=== PATIENT | female | born 1985 | race Caucasian/White ===

== ENCOUNTER 2017-11-25 18:27 | Emergency (ER) | payer OTHER ==
[2017-11-25 18:47] VITALS: BMI 23.8
[2017-11-25] MEDS ORDERED: SODIUM CHLORIDE 0.9% 500 ML INFUS.BAG IV ONE (19:57)
[2017-11-25] MEDS ORDERED: ACETAMINOPHEN 1000 MG/100 ML VIAL (NON FORMULARY) IVPB ONE (19:57)
--- NOTE | 2017-11-25 20:18 | PDOC ---
History of Present Illness - General Chief Complaint: Headache Stated Complaint: Headache Time Seen by Provider: 11/25/17 19:37 - History of Present Illness Initial Comments: 32 y/o about 2 month gravid F with hx of miscarriage x2 in the past presents for evaluation of GUZMÁN x1 day unreleieved with PO Tylenol at home at 1 pm. Associated with nausea and 1 episode of vomiting and photophobia. Hx of prior headaches in the past. 11/25/17 20:16 Past History - Past Medical History Allergies/Adverse Reactions: Allergies Allergy/AdvReac Type Severity Reaction Status Date / Time No Known Allergies Allergy Verified 11/25/17 18:43 Home Medications: Ambulatory Orders NK [No Known Home Medication] 11/25/17 - Suicide/Smoking/Psychosocial Hx Smoking History: Never smoked Have you smoked in the past 12 months: No Hx Alcohol Use: No Drug/Substance Use Hx: No Review of Systems - Review of Systems ABD/GI: Yes: Nausea, Vomiting Neurological: Yes: See HPI, Headache All Other Systems: Reviewed and Negative *Physical Exam - Vital Signs Last Vital Signs Temp Pulse Resp BP Pulse Ox 98.9 F 84 16 110/67 99 11/25/17 18:43 11/25/17 18:43 11/25/17 18:43 11/25/17 18:43 11/25/17 18:43 - Physical Exam Comments: HEAD: NC/AT EYES: Conjuntiva clear, PERRL NOSE: No d/c THROAT: Moist mucous membrances, oral pharanx clear, uvula midline NECK: Supple without adenopathy CARDIAC: S1 S2 LUNGS: CTA Full and Equal breath sounds ABDOMEN: Soft NT ND MS: Full ROM in all joints without edema NEUROLOGIC: No gross sensory or motor deficits, NVID SKIN: Normal color and temperature no lesions or rashes 11/25/17 20:34 ED Treatment Course - LABORATORY CBC & Chemistry Diagram: 11/25/17 20:00 11/25/17 20:00 Medical Decision Making - Medical Decision Making 11/25/17 23:31 Tylenol and normal saline a liter bolus Benadryl and Reglan were given headache was relieved. A weeks does not require REFERENCE TEST CLERK clearance she may be safely discharged with follow-up with REFERENCE TEST CLERK *DC/Admit/Observation/Transfer Diagnosis at time of Disposition: Headache - Discharge Dispostion Disposition: HOME Condition at time of disposition: Improved Decision to Admit order: No - Referrals Referrals: Darlyn St A [Primary Care Provider] - Manan Brandt MD [Staff Physician] - - Patient Instructions Printed Discharge Instructions: DI for Headache Additional Instructions: Regrese a la demi de emergencias si los sntomas regresan. Xiang un seguimiento con un obstetra / gineclogo en 1 o 2 elizabeth para obtener ms informacin sobre la evaluacin y las opciones de tratamiento. Mariaelena arreaga dado el nombre de un neurlogo para obtener ms informacin sobre la evaluacin y la opcin de tratamiento de davidson dolor de alison. Solo puede juan Tylenol para el dolor segn las indicaciones. Print Language: TONGAN - Post Discharge Activity
[2017-11-25 20:25] LABS: BASO % 0.5 % (0-2.0); EOS % 1.1 % (0-4.5); HEMATOCRIT 35.9 % (32.4-45.2); HEMOGLOBIN 12.2 GM/dL (10.7-15.3); LYMPH % 24.7 % (8-40); MCH 30.1 pg (25.7-33.7); MEAN CELL VOLUME 88.4 fl (80-96); MEAN PLT VOLUME 9.5 fl (7.5-11.1); MONO % 5.6 % (3.8-10.2); NEUT % 68.1 % (42.8-82.8); PLATELET COUNT 201 K/MM3 (134-434); RBC 4.06 M/mm3 (3.60-5.2); RDW 13.6 % (11.6-15.6); WHITE BLOOD COUNT 8.1 K/mm3 (4.0-10.0)
[2017-11-25 20:34] LABS: ALBUMIN 3.4 g/dl (3.4-5.0); ALK PHOS 29 U/L (45-117); ANION GAP 9 MMOL/L (8-16); BILIRUBIN,TOTAL 0.2 mg/dL (0.2-1); BLOOD UREA NITROGEN 6 mg/dL (7-18); CALCIUM 9.2 mg/dL (8.5-10.1); CHLORIDE 105 mmol/L (98-107); CO2 24 mmol/L (21-32); CREATININE 0.4 mg/dL (0.55-1.3); GLUCOSE,RANDOM 96 mg/dL (74-106); SGOT/AST 11 U/L (15-37); SGPT/ALT 16 U/L (13-61); SODIUM 137 mmol/L (136-145); TOT PROT 6.6 g/dl (6.4-8.2)
[2017-11-25] MEDS ORDERED: ACETAMINOPHEN INJECTION 100 ML IVPB ONE (21:09)
[2017-11-25] MEDS ORDERED: METOCLOPRAMIDE HCL INJECTION 10 MG/2 ML VIAL IVPUSH ONE (21:47)
[2017-11-25] MEDS ORDERED: METOCLOPRAMIDE HCL INJECTION 10 MG/2 ML VIAL ONE (22:54)
[2017-11-26 00:20] VITALS: BP 115/64; PULSE 78; TEMP 98.1
== END 2017-11-26 00:20 | disposition home or self-care (01) ==
LOC: JERFT 18:27 → JER 18:27
PROC: 3E033NZ Introduction of Analgesics, Hypnotics, Sedatives into Peripheral Vein, Percutaneous Approach (ICD-10-PCS; principal; 2017-11-25)
PROC: 3E033GC Introduction of Other Therapeutic Substance into Peripheral Vein, Percutaneous Approach (ICD-10-PCS; 2017-11-25)
PROC: 3E033GC Introduction of Other Therapeutic Substance into Peripheral Vein, Percutaneous Approach (ICD-10-PCS; 2017-11-25)
DX: O26.891 Other specified pregnancy related conditions, first trimester (principal); R51 Headache; Z3A.08 8 weeks gestation of pregnancy
CPT/HCPCS: 36415; 80053; 85025; 96374; 96375; 99281-25; J0131

== ENCOUNTER 2018-06-09 06:33 | Inpatient (IN) | payer OTHER ==
[2018-06-09 07:42] VITALS: BMI 29.6
[2018-06-09] MEDS ORDERED: ONDANSETRON 4 MG/2 ML VIAL IVPUSH PRN (07:47)
[2018-06-09] MEDS ORDERED: morphine SULFATE/Preservative Free 0.5 MG/ML (1cc Syringe) EP ONE (07:47)
[2018-06-09] MEDS ORDERED: OXYTOCIN 20 UNITS in 0.9% NS 40 UNIT/2,000 ML INFUS.BAG IV ONE (07:57)
[2018-06-09] MEDS ORDERED: morphine SULFATE/Preservative Free 0.5 MG/ML (1cc Syringe) ONE (08:05)
[2018-06-09] MEDS ORDERED: ceFAZolin SODIUM 1 GM VIAL ONE (08:06)
--- NOTE | 2018-06-09 08:12 | HP ---
Past Medical History - Admission Chief Complaint: Repeat History of Present Illness: 33yo @ 39.2wks here for RLTCS No VB/LOF. +FM History Source: Patient Limitations to Obtaining History: Language Barrier - Past Medical History RERECORDING MIXER: No: Alzheimer's, CVA, Dementia, Migraine, Multiple Sclerosis, Peripheral Neuropathy, Parkinson's, Seizure, Syncope, TIA, Vertigo, Other Cardiovascular: No: AFIB, Aneurysm, Aortic Insufficiency, Aortic Stenosis, CAD, CHF, Deep Vein Thrombosis, HTN, Hyperlipdemia, WI, Mitral Insufficiency, Mitral Stenosis, Murmur, Pulmonary Hypertension, Other Pulmonary: No: Asthma, Bronchitis, Cancer, COPD, O2 Dependent, Pneumonia, Previously Intubated, Pulmonary Embolus, Pulmonary Fibrosis, Sleep Apnea, Other Gastrointestinal: No: Ascites, Cancer, Constipation, Crohn's Disease, Diverticulitis, Diverticulosis, Esophageal Varices, Gastritis, GERD, GI Bleed, Hemorrhoids, Hiatal Hernia, Inflamatory Bowel Disease, Irritable Bowel Disease, Pancreatitis, Peptic Ulcer Disease, Ulcerative Colitis, Other Hepatobiliary: No: Cirrhosis, Cholelithiasis, Cholecystitis, Choledocholithiasis , Hepatitis A, Hepatitis B, Hepatitis C, Other Renal/: No: Renal Failure, Renal Inusuff, BPH, Cancer, Hematuria, Hemodialysis , Neurogenic Bladder, Renal Calculi, UTI, Other Reproductive: No: Ectopic , Endometriosis, Fibroids, PID, Polycystic Ovary Syndrome, Postmenopausal, Other ...: 4 ...Para: 1 ...Term: 1 ...: 0 ...Spon : 1 ...Induced : 1 ...Multiple Gestation: 0 ...LMP: 09/30/17 ... Weeks Gestation by Dates: 36.0 ...EDC by Dates: 07/07/18 ...EDC by Sono: 06/14/18 Heme/Onc: Yes: Anemia Infectious Disease: No: AIDS, C-Diff, Herpes Zoster, HIV, MRSA, STD's, Tuberculosis, VREF, Other Psych: No: Addictions, Anxiety, Bipolar, Depression, Panic, Psychosis, Schizophrenia, Other Musculoskeletal: No: Bursitis, Chronic low back pain, Hemiparesis, Hemiplegia, Osteoarthritis, Paraplegia, Other ENT: No: Allergic Rhinitis, Sinusitis, Other Endocrine: No: Fabian's Disease, Edmonson's Disease, Diabetes Insipidus, Diabetes Mellitus, Hyperparathyroidism, Hyperthyroidism, Hypothyroidism, Osteopenia, SIADH, Other Dermatology: No: Basal Cell, Cellulitis, Eczema, Melanoma, Psoriasis, Squamous Cell, Other - Past Surgical History Past Surgical History: Yes: Hx Myomectomy: No Hx Transabdominal Cerclage: No - Advance Directives Advance Directives: No: Living Will, Health Care Proxy, DNR, Organ Donor, Tissue Donor, MOLST - Smoking History Smoking history: Never smoked Have you smoked in the past 12 months: No - Alcohol/Substance Use Hx Alcohol Use: No History of Substance Use: reports: None - Social History Usual Living Arrangement: Yes: Alone History of Recent Travel: No Home Medications - Allergies Allergies/Adverse Reactions: Allergies Allergy/AdvReac Type Severity Reaction Status Date / Time No Known Allergies Allergy Verified 06/09/18 07:16 - Home Medications Home Medications: Ambulatory Orders Vits96/Iron Fum/Folic [ Tablet] 1 each PO DAILY 06/09/18 Review of Systems - Review of Systems Constitutional: denies: No Symptoms, Chills, Diaphoresis, Fever, Lethargy, Loss of Appetite, Malaise, Night Sweats, Unintentional Wgt. Loss, Weakness, Other Respiratory: denies: No Symptoms, Cough, Exercise Intolerance, Hemoptysis, Orthopnea, PND, Snoring, SOB, SOB on Exertion, Wheezing, Other Gastrointestinal: denies: No Symptoms, Abdominal Pain, Bloating, Constipation, Diarrhea, Dysphagia, Indigestion, Melena, Nausea, Rectal Bleeding, Vomiting, Vomiting Blood, Other Physical Exam - Maternity Vital Signs: Vital Signs Temperature 98.5 F 06/09/18 07:15 Pulse Rate 101 H 06/09/18 07:15 Respiratory Rate 18 06/09/18 07:15 Blood Pressure 118/75 06/09/18 07:15 O2 Sat by Pulse Oximetry (%) - Abdominal Exam/OB Number of Fetuses: Single Presentation: Breech Contractions: No Heart Rate Location: LUQ Accelerations: Non-Uniform Decelerations: None - Vaginal Exam/OB Vaginal Bleediing: No Speculum Exam: No Amniotic Membrane Status: Intact Assessment/Plan 33yo @ 39.2wks here for RLTCS Admit to L&D NPO, IVFs Ancef SCDs Risk of procedure reviewed including bleeding, infection, injury to bladder/ bowel/adnexa/vessels Bruna Wilson MD
[2018-06-09] MEDS ORDERED: PHENYLEPHRINE HCL 10 MG/1 ML SINGLE DOSE VIAL ONE (08:27)
[2018-06-09] MEDS ORDERED: CITRIC ACID/SODIUM CITRATE 30 ML UNIT-DOSE CUP PO ONE (08:30)
[2018-06-09] MEDS ORDERED: OXYTOCIN 10 UNITS/ML VIAL ONE (08:37)
--- NOTE | 2018-06-09 09:12 | OP ---
Operative Note - Note: Operative Date: 06/09/18 Pre-Operative Diagnosis: 39week , Breech, desires ERCS Operation: RLTCS Findings: VFI, dante breech, 8.2lbs, Apgars 9/9. Normal tubes and ovaries bilaterally Post-Operative Diagnosis: Same as Pre-op Surgeon: Lisa Wilson Audio/Visual Operator: Ana Medina Anesthesiologist/AUTO RADIATOR MECHANIC: James Guzman Anesthesia: Spinal Estimated Blood Loss (mls): 600 Drains, Volume Out (mls): 100 (clear urine) Operative Report Dictated: Yes
--- NOTE | 2018-06-09 09:19 | SURG ---
Surgery Mailroom Courier Note Mailroom Courier: Ana Medina PA-C Date of Service: 06/09/18 Diagnosis: 39week , Breech, desires ERCS Procedure: repeat I was present for the entirety of the operative procedure. For further detail, please refer to operative report. Visit type - Case Type Case Type: Scheduled - Emergency Emergency Visit: No - New patient This patient is new to me today: Yes Date on this admission: 06/09/18
[2018-06-09] MEDS ORDERED: OXYTOCIN 20 UNITS in 0.9% NS 20 UNIT/1,000 ML INFUS.BAG IV SCH (09:45)
[2018-06-09] MEDS ORDERED: oxyCODONE HCL 5 MG TABLET PO PRN (09:45)
[2018-06-09] MEDS ORDERED: WITCH HAZEL 50% (TUCKS) 40 PAD/JAR PAD TP PRN (09:45)
[2018-06-09] MEDS ORDERED: METHYLERGONOVINE MALEATE 0.2 MG/1 ML AMP IM PRN (09:45)
[2018-06-09] MEDS ORDERED: ELECTROLYTE-148 SOLN 500 ML IV ONE (09:48)
[2018-06-09] MEDS ORDERED: ELECTROLYTE-148 SOLN 1,000 ML IV SCH (10:00)
--- NOTE | 2018-06-09 11:51 | OP ---
DATE OF OPERATION: 06/09/2018 PREOPERATIVE DIAGNOSES: A 39-week , breech presentation, elective repeat section. POSTOPERATIVE DIAGNOSES: A 39-week , breech presentation, elective repeat section. PROCEDURE: Repeat low transverse section. SURGEON: Lisa Wilson MD CLINICAL TRIALS ASSISTANT: ISHA Montalvo ANESTHESIOLOGIST: James Guzman MD ANESTHESIA: Spinal. ESTIMATED BLOOD LOSS: 600. URINE OUTPUT: 100 mL of clear urine at the end of the procedure. FINDINGS: Viable female infant, dante breech presentation. Weight 8 pounds 2 ounces. Apgars 9/9. Normal tubes and ovaries bilaterally. COMPLICATIONS: None. CONDITION: Stable to recovery room. NATURE OF PROCEDURE: As follows, after appropriate consents were signed, patient was taken to the operating room where spinal anesthesia was administered. The abdomen was then prepped and draped in a normal sterile fashion. A Betancourt catheter had been inserted prior to entry into the operative room. A timeout was performed confirming correct patient and procedure. A Pfannenstiel incision was made through the prior incision and carried down through the underlying layers until the fascia was nicked in the midline. Fascia was then extended laterally with the Box scissors. The inferior aspect of the fascia was grasped with the Kochers, tented upwards, and the rectus muscles were dissected off bluntly and with the Box scissors. Attention was then paid to the superior aspect which was taken down in a similar fashion. The rectus muscles were then elevated with Allis clamps, and using the scalpel, gently in the rectal sheath in the midline. The peritoneum was then entered bluntly and extended manually. The bladder blade was inserted. Using the Metzenbaum scissors, bladder flap was created, after the serosa was nicked in the midline, and extended laterally. The bladder flap was then created digitally. The bladder blade was then reinserted. The uterus was then incised in a low transverse segment. Infant was noted to be in dante breech presentation. The feet and pelvis were delivered with the usual maneuvers. The head was delivered with the Oujqczmgk-Cxondon-Yguk maneuver. The cord was clamped and cut. The was handed off to the awaiting pediatric staff. The placenta was removed spontaneously. The uterus was cleared of all clot and debris. The uterus was closed in a single vertical imbricating later with 1-0 vicryl with good hemostasis. The adnexa were inspected and noted to be normal. The gutters were cleared of all clot and debris. The muscle was reapproximated with a 2-0 chromic. The fascia was closed with a 0 Vicryl. Subcutaneous fat was closed with a 3-0 plain. The skin was closed with a 4-0 Biosyn. Appropriate bandages were placed. All sponge, lap, and needle counts were correct x3. The patient received 1 g of Ancef at the start of the procedure. She was taken to the recovery room in stable condition. MD ARIAS SORENSEN/[id number] MTDD
[2018-06-09] MEDS: SIMETHICONE 80 MG TAB.CHEW (FP) PO PRN (21:27)
[2018-06-09] MEDS: FERROUS SO4 325 MG TABLET (FP) PO SCH (21:27)
[2018-06-09] MEDS: IBUPROFEN 800 MG/8 ML IJ IVPB PRN (21:27)
[2018-06-10] MEDS: IBUPROFEN 800 MG/8 ML IJ IVPB PRN (04:15)
[2018-06-10] MEDS: SIMETHICONE 80 MG TAB.CHEW (FP) PO PRN ×2 (06:09→21:25)
[2018-06-10 07:23] LABS: BASO % 0.4 % (0-2.0); EOS % 0.3 % (0-4.5); HEMATOCRIT 35.9 % (32.4-45.2); HEMOGLOBIN 12.3 GM/dL (10.7-15.3); MCH 30.1 pg (25.7-33.7); MCHC 34.1 g/dl (32.0-36.0); MEAN CELL VOLUME 88.3 fl (80-96); MEAN PLT VOLUME 11.4 fl (7.5-11.1); MONO % 4.6 % (3.8-10.2); NEUT % 85.7 % (42.8-82.8); PLATELET COUNT 131 K/MM3 (134-434); RBC 4.07 M/mm3 (3.60-5.2); RDW 15.6 % (11.6-15.6); WHITE BLOOD COUNT 13.4 K/mm3 (4.0-10.0)
[2018-06-10] MEDS: FERROUS SO4 325 MG TABLET (FP) PO SCH ×2 (09:20→21:25)
[2018-06-10] MEDS: PRENATAL VITAMINS W/ FOLIC ACID TABLET (FP) PO SCH (09:21)
[2018-06-10] MEDS ORDERED: BISACODYL 10 MG SUPP.RECT RC PRN (09:45)
--- NOTE | 2018-06-10 13:30 | PN ---
Progress Note (short form) - Note Progress Note: Anesthesia POD#1 S/P under Spinal with Duramorph VSS,no N/V,legs strong,pain is bearable. Doing well. Carol Oquendo MD.
--- NOTE | 2018-06-10 13:45 | PN ---
Post Progress Note - Subjective Subjective: pt siiting in chair, comfortable Post Day: 1 Type of Delivery: Repeat C/S Vital Signs: Vital Signs Temperature 98.4 F 06/10/18 08:00 Pulse Rate 76 06/10/18 08:00 Respiratory Rate 20 06/10/18 13:00 Blood Pressure 101/61 06/10/18 08:00 O2 Sat by Pulse Oximetry (%) 98 06/09/18 10:40 Breast Exam: Yes: Soft Uterus: Yes: Fundus Firm Incision: Yes: Dressing dry and intact Abdomen/GI: Yes: Abdomen soft Lochia: Yes: Rubra Lochia, amount: Small Extremities: Yes: Calves non-tender Perineum: Yes: Intact Activity: Ambulating - Labs Labs: CBC WBC 13.4 K/mm3 (4.0-10.0) H 06/10/18 06:00 RBC 4.07 M/mm3 (3.60-5.2) 06/10/18 06:00 Hgb 12.3 GM/dL (10.7-15.3) 06/10/18 06:00 Hct 35.9 % (32.4-45.2) 06/10/18 06:00 MCV 88.3 fl (80-96) 06/10/18 06:00 MCH 30.1 pg (25.7-33.7) 06/10/18 06:00 MCHC 34.1 g/dl (32.0-36.0) 06/10/18 06:00 RDW 15.6 % (11.6-15.6) 06/10/18 06:00 Plt Count 131 K/MM3 (134-434) L 06/10/18 06:00 MPV 11.4 fl (7.5-11.1) H 06/10/18 06:00 Absolute Neuts (auto) 11.5 K/mm3 (1.5-8.0) H 06/10/18 06:00 Neutrophils % 85.7 % (42.8-82.8) H 06/10/18 06:00 Lymphocytes % 9.0 % (8-40) D 06/10/18 06:00 Monocytes % 4.6 % (3.8-10.2) 06/10/18 06:00 Eosinophils % 0.3 % (0-4.5) 06/10/18 06:00 Basophils % 0.4 % (0-2.0) 06/10/18 06:00 Nucleated RBC % 0 % (0-0) 06/10/18 06:00 Assessment/Plan as above oob reg diet pain control check labs
[2018-06-10] MEDS: ACETAMINOPHEN 325 MG TABLET (FP) PO PRN ×2 (13:53→21:26)
[2018-06-10] MEDS: IBUPROFEN 600 MG TABLET (FP) PO PRN ×2 (13:54→21:25)
[2018-06-11] MEDS: IBUPROFEN 600 MG TABLET (FP) PO PRN ×4 (03:25→18:13)
[2018-06-11] MEDS: ACETAMINOPHEN 325 MG TABLET (FP) PO PRN ×4 (03:25→18:12)
[2018-06-11] MEDS: SIMETHICONE 80 MG TAB.CHEW (FP) PO PRN ×4 (03:25→19:41)
[2018-06-11] MEDS: PRENATAL VITAMINS W/ FOLIC ACID TABLET (FP) PO SCH (09:27)
[2018-06-11] MEDS: FERROUS SO4 325 MG TABLET (FP) PO SCH ×2 (09:27→21:00)
[2018-06-12 07:32] LABS: BASO % 0.6 % (0-2.0); EOS % 1.9 % (0-4.5); HEMATOCRIT 35.2 % (32.4-45.2); HEMOGLOBIN 11.8 GM/dL (10.7-15.3); LYMPH % 20.2 % (8-40); MCH 30.2 pg (25.7-33.7); MCHC 33.6 g/dl (32.0-36.0); MEAN CELL VOLUME 89.6 fl (80-96); MEAN PLT VOLUME 10.1 fl (7.5-11.1); MONO % 5.2 % (3.8-10.2); NEUT % 72.1 % (42.8-82.8); PLATELET COUNT 172 K/MM3 (134-434); RBC 3.93 M/mm3 (3.60-5.2); RDW 15.5 % (11.6-15.6); WHITE BLOOD COUNT 7.4 K/mm3 (4.0-10.0)
--- NOTE | 2018-06-12 08:12 | DS ---
Physical Examination Vital Signs: Vital Signs Temperature 97.4 F L 06/11/18 21:01 Pulse Rate 69 06/11/18 21:01 Respiratory Rate 20 06/11/18 21:01 Blood Pressure 109/65 06/11/18 21:01 O2 Sat by Pulse Oximetry (%) 98 06/09/18 10:40 Constitutional: Yes: Well Nourished, No Distress, Calm Eyes: Yes: WNL, Conjunctiva Clear, EOM Intact HENT: Yes: WNL, Atraumatic, Normocephalic Neck: Yes: WNL, Supple, Trachea Midline Cardiovascular: Yes: WNL, Regular Rate and Rhythm Respiratory: Yes: WNL, Regular, CTA Bilaterally Gastrointestinal: Yes: WNL, Normal Bowel Sounds Musculoskeletal: Yes: WNL Extremities: Yes: WNL Edema: No Integumentary: Yes: WNL Neurological: Yes: WNL, Alert, Oriented ...Motor Strength: WNL Psychiatric: Yes: WNL Labs: CBC, BMP 06/12/18 07:00 Discharge Summary Reason For Visit: ADMIT-C/S Procedures: Principal: RLTCS Hospital Course: Patient presented for a scheduled RLTCS She had an uncomplicated delivery She met all milestones and was discharged home on POD#3 MDonato Wilson MD Condition: Stable - Instructions Diet, Activity, Other Instructions: Regular Diet Referrals: Lisa Wilson MD [Staff Physician] - Disposition: HOME - Home Medications Comprehensive Discharge Medication List: Ambulatory Orders Ibuprofen 600 mg PO Q6H PRN #30 tablet 06/09/18 Vits96/Iron Fum/Folic [ Tablet] 1 each PO DAILY 06/09/18
[2018-06-12] MEDS: ACETAMINOPHEN 325 MG TABLET (FP) PO PRN (08:21)
[2018-06-12] MEDS: IBUPROFEN 600 MG TABLET (FP) PO PRN (08:22)
[2018-06-12] MEDS: SIMETHICONE 80 MG TAB.CHEW (FP) PO PRN (08:23)
[2018-06-12 09:03] VITALS: BP 100/68; PULSE 58; TEMP 98.4
[2018-06-12] MEDS: PRENATAL VITAMINS W/ FOLIC ACID TABLET (FP) PO SCH (09:28)
[2018-06-12] MEDS: FERROUS SO4 325 MG TABLET (FP) PO SCH (09:28)
--- NOTE | 2018-06-12 18:57 | PATH ---
Surgical Pathology Report Patient Name: MAURISIO TATE Med. Rec. #: [id number] /Age/Gender: 1985 (Age: 33) / F Account: [id number] Location: [facility] OBS/LAST IRONER Taken: 06/09/2018 Received: 06/09/2018 Reported: 06/12/2018 Physicians: Lisa Wilson Specimen(s) Received PLACENTA Clinical History , history of HSV 1 & 2, SP AB x1, IAB x1-second trimester/ anomalies Final Diagnosis PLACENTA, SECTION: 497 G THIRD TRIMESTER PLACENTA WITH TRIVASCULAR UMBILICAL CORD AND UNREMARKABLE PLACENTAL MEMBRANES. Electronically Signed Sariah Ding M.D. Gross Description The specimen is received fresh labeled placenta and is a 497 gram, 23.0 x 17.0 x 2.4 cm. placenta with attached membranes and umbilical cord. The attached membranes are ventura, translucent with focal opacities and insert marginally. The umbilical cord measures 23 cm. in length and averages 1.4 cm. in diameter. The cord inserts eccentrically, 5.5 cm. to the nearest margin. No true knots or strictures are identified. Cut surface of the umbilical cord reveals 3 vessels. The surface is parry-blue with minimal fibrin deposition and appropriate caliber vessels. The maternal surface is red-brown with focal defects. Sectioning reveals red-brown, spongy parenchyma. No lesions are identified. Booky sections are submitted in three cassettes as follows: 1- membrane rolls and umbilical cord; 2-3- full thickness sections of placenta. /06/11/2018 [facility]06/11/2018
== END 2018-06-12 12:49 | disposition home or self-care (01) | DRG 540 ==
LOC: JLDR 06:33 → J3W 11:13
PROVIDERS: ADMIT Obstetrics & Gynecology; ATTEND Obstetrics & Gynecology
PROC: 10D00Z1 Extraction of Products of Conception, Low, Open Approach (ICD-10-PCS; principal; 2018-06-09)
DX: O32.1XX0 Maternal care for breech presentation, not applicable or unspecified (principal); O34.219 Maternal care for unspecified type scar from previous cesarean delivery; Z3A.39 39 weeks gestation of pregnancy; Z37.0 Single live birth
CPT/HCPCS: 36415; 85025; 86593; 88307-TC

== ENCOUNTER 2021-10-23 09:50 | Emergency (ER) | payer OTHER ==
[2021-10-23 10:09] VITALS: TEMP 98.4; BMI 32.2
[2021-10-23 12:50] LABS: BASO % 0.5 % (0-2.0); EOS % 1.1 % (0-4.5); HEMATOCRIT 40.1 % (32.4-45.2); HEMOGLOBIN 13.3 GM/dL (10.7-15.3); MCH 29.7 pg (25.7-33.7); MCHC 33.2 g/dl (32.0-36.0); MEAN CELL VOLUME 89.6 fl (80-96); MONO % 6.1 % (3.8-10.2); NEUT % 59.3 % (42.8-82.8); PLATELET COUNT 192 10^3/uL (134-434); RBC 4.48 M/mm3 (3.60-5.2); RDW 12.9 % (11.6-15.6); WHITE BLOOD COUNT 6.8 K/mm3 (4.0-10.0)
[2021-10-23 13:23] LABS: ALBUMIN 3.9 g/dl (3.4-5.0); BLOOD UREA NITROGEN 11.9 mg/dL (7-18); CALCIUM 9.3 mg/dL (8.5-10.1)
[2021-10-23 13:26] LABS: CREATININE 0.6 mg/dL (0.55-1.3)
[2021-10-23 13:28] LABS: BILIRUBIN,TOTAL 0.3 mg/dL (0.2-1)
[2021-10-23 15:18] VITALS: BP 124/77; PULSE 75; RESP 20
== END 2021-10-23 15:18 | disposition home or self-care (01) ==
LOC: JERFT 09:50
DX: R07.9 Chest pain, unspecified (principal)
CPT/HCPCS: 36415; 70450-TC; 71046-TC-FY; 80053; 84484; 85025; 93005; 93010; 99285-25

== ENCOUNTER 2022-05-31 15:53 | Emergency (ER) | payer OTHER ==
[2022-05-31 16:09] VITALS: BP 121/86; PULSE 92; RESP 18; TEMP 98.1; BMI 24.7
[2022-05-31] MEDS ORDERED: SODIUM CHLORIDE 1,000 ML IV STA (16:26)
[2022-05-31 17:13] LABS: BASO % 0.9 % (0-2.0); EOS % 2.3 % (0-4.5); HEMATOCRIT 37.2 % (32.4-45.2); HEMOGLOBIN 12.6 GM/dL (10.7-15.3); LYMPH % 24.9 % (8-40); MCH 29.2 pg (25.7-33.7); MCHC 33.8 g/dl (32.0-36.0); MEAN CELL VOLUME 86.4 fl (80-96); MEAN PLT VOLUME 9.3 fl (7.5-11.1); MONO % 5.3 % (3.8-10.2); NEUT % 66.6 % (42.8-82.8); PLATELET COUNT 216 10^3/uL (134-434); RBC 4.31 M/mm3 (3.60-5.2); RDW 13.5 % (11.6-15.6); WHITE BLOOD COUNT 8.8 K/mm3 (4.0-10.0)
[2022-05-31 17:15] LABS: HCG,QUALITATIVE URINE Positive
[2022-05-31 17:19] LABS: EPI CELLS 29 /uL (0-25.1); HYALINE CASTS 0 /uL (0-3.1); URINE APPEARANCE CLEAR; URINE BACTERIA 466 /uL (0-1359); URINE BILIRUBIN NEGATIVE (NEGATIVE); URINE COLOR YELLOW; URINE GLUCOSE (UA) NEGATIVE (NEGATIVE); URINE KETONE NEGATIVE (NEGATIVE); URINE LEUK ESTERASE 2+ (NEGATIVE); URINE NITRITE NEGATIVE (NEGATIVE); URINE PROTEIN NEGATIVE (NEGATIVE); URINE RBC 7 /uL (0-23.9); URINE UROBILINOGEN 0.2 mg/dL (0.2-1.0); URINE WBC 64 /uL (0-25.8)
[2022-05-31 17:20] LABS: INR 1.02 (0.83-1.09); PROTHROMBIN TIME (PATIENT) 11.8 SEC (9.7-13.0)
[2022-05-31 17:22] LABS: ACTIVATED PTT 33.1 SECONDS (25.2-36.5)
[2022-05-31] MEDS ORDERED: CEPHALEXIN MONOHYDRATE 500 MG CAPSULE (UD) PO ONE (20:22)
[2022-05-31] MEDS ORDERED: CEPHALEXIN MONOHYDRATE 250 MG CAPSULE (FP) ONE (20:38)
[2022-05-31] MEDS ORDERED: CEPHALEXIN MONOHYDRATE 500 MG CAPSULE (UD) ONE (20:39)
== END 2022-05-31 21:18 | disposition home or self-care (01) ==
LOC: JER 15:53
DX: O20.9 Hemorrhage in early pregnancy, unspecified (principal); R10.2 Pelvic and perineal pain; Z3A.00 Weeks of gestation of pregnancy not specified
CPT/HCPCS: 36415; 76817-TC; 81003; 84702; 84703; 85025; 85610; 85730; 86850; 86900; 86901; 87086; 99284-25

== ENCOUNTER 2022-06-04 10:14 | Emergency (ER) | payer OTHER ==
[2022-06-04 10:23] VITALS: BP 116/69; PULSE 76; RESP 18; TEMP 98.6; BMI 24.4
[2022-06-04 12:44] LABS: EPI CELLS >36 /uL (0-25.1); HYALINE CASTS 3 /uL (0-3.1); URINE APPEARANCE CLEAR; URINE BACTERIA 128 /uL (0-1359); URINE BILIRUBIN NEGATIVE (NEGATIVE); URINE COLOR YELLOW; URINE GLUCOSE (UA) NEGATIVE (NEGATIVE); URINE KETONE NEGATIVE (NEGATIVE); URINE LEUK ESTERASE 2+ (NEGATIVE); URINE NITRITE NEGATIVE (NEGATIVE); URINE PROTEIN NEGATIVE (NEGATIVE); URINE RBC 41 /uL (0-23.9); URINE UROBILINOGEN 0.2 mg/dL (0.2-1.0); URINE WBC 73 /uL (0-25.8)
[2022-06-04 12:46] LABS: BASO % 0.5 % (0-2.0); EOS % 2.2 % (0-4.5); HEMATOCRIT 36.2 % (32.4-45.2); HEMOGLOBIN 12.5 GM/dL (10.7-15.3); LYMPH % 19.8 % (8-40); MCH 29.8 pg (25.7-33.7); MCHC 34.5 g/dl (32.0-36.0); MEAN CELL VOLUME 86.2 fl (80-96); MONO % 5.2 % (3.8-10.2); NEUT % 72.3 % (42.8-82.8); PLATELET COUNT 224 10^3/uL (134-434); RDW 13.8 % (11.6-15.6); WHITE BLOOD COUNT 8.4 K/mm3 (4.0-10.0)
[2022-06-04 13:08] LABS: BLOOD UREA NITROGEN 9.6 mg/dL (7-18); CALCIUM 9.1 mg/dL (8.5-10.1)
[2022-06-04 13:09] LABS: ALBUMIN 3.7 g/dl (3.4-5.0)
[2022-06-04 13:11] LABS: CREATININE 0.5 mg/dL (0.55-1.3)
[2022-06-04 13:13] LABS: BILIRUBIN,TOTAL 0.3 mg/dL (0.2-1); TOT PROT 6.9 g/dl (6.4-8.2)
== END 2022-06-04 15:00 | disposition home or self-care (01) ==
LOC: JERFT 10:14
DX: O03.9 Complete or unspecified spontaneous abortion without complication (principal); O26.891 Other specified pregnancy related conditions, first trimester; R30.0 Dysuria; Z3A.01 Less than 8 weeks gestation of pregnancy
CPT/HCPCS: 36415; 76817-TC; 80053; 81003; 84702; 85025; 86850; 86900; 86901; 87086; 99284-25

== ENCOUNTER 2023-06-17 09:09 | Emergency (ER) | payer OTHER ==
[2023-06-17 09:16] VITALS: BMI 31.2
[2023-06-17 11:38] LABS: BASO % 0.4 % (0-2.0); HEMOGLOBIN 13.2 GM/dL (10.7-15.3); LYMPH % 19.9 % (8-40); MCH 29.4 pg (25.7-33.7); MCHC 33.1 g/dl (32.0-36.0); MEAN CELL VOLUME 88.8 fl (80-96); MEAN PLT VOLUME 8.8 fl (7.5-11.1); MONO % 4.9 % (3.8-10.2); NEUT % 73.8 % (42.8-82.8); PLATELET COUNT 246 10^3/uL (134-434); RDW 13.5 % (11.6-15.6); WHITE BLOOD COUNT 10.6 K/mm3 (4.0-10.0)
[2023-06-17 11:44] LABS: EPI CELLS 10 /uL (0-25.1); HYALINE CASTS 1 /uL (0-3.1); URINE APPEARANCE CLEAR; URINE BACTERIA 38 /uL (0-1359); URINE BILIRUBIN NEGATIVE (NEGATIVE); URINE COLOR YELLOW; URINE GLUCOSE (UA) NEGATIVE (NEGATIVE); URINE KETONE NEGATIVE (NEGATIVE); URINE LEUK ESTERASE NEGATIVE (NEGATIVE); URINE NITRITE NEGATIVE (NEGATIVE); URINE PROTEIN NEGATIVE (NEGATIVE); URINE RBC 13 /uL (0-23.9); URINE UROBILINOGEN 0.2 mg/dL (0.2-1.0); URINE WBC 9 /uL (0-25.8)
[2023-06-17 11:49] LABS: INR 1.06 (0.83-1.09); PROTHROMBIN TIME (PATIENT) 12.3 SEC (9.7-13.0)
[2023-06-17 11:51] LABS: ACTIVATED PTT 32.5 SECONDS (25.2-36.5)
[2023-06-17 12:01] LABS: POTASSIUM 3.9 mmol/L (3.5-5.1)
[2023-06-17 12:03] LABS: BLOOD UREA NITROGEN 12.2 mg/dL (7-18); CALCIUM 10.2 mg/dL (8.5-10.1)
[2023-06-17 12:06] LABS: CREATININE 0.6 mg/dL (0.55-1.3)
[2023-06-17 12:09] LABS: BILIRUBIN,TOTAL 0.6 mg/dL (0.2-1); TOT PROT 7.5 g/dl (6.4-8.2)
[2023-06-17 14:43] VITALS: BP 124/78; PULSE 81; RESP 18; TEMP 98.1
== END 2023-06-17 14:43 | disposition home or self-care (01) ==
LOC: JER 09:09
DX: O20.9 Hemorrhage in early pregnancy, unspecified (principal); Z3A.01 Less than 8 weeks gestation of pregnancy
CPT/HCPCS: 36415; 76817-TC; 80053; 81003; 84702; 84703; 85025; 85610; 85730; 86850; 86900; 86901; 87077; 87086; 99284-25

== ENCOUNTER 2023-06-20 09:04 | Emergency (ER) | payer OTHER ==
[2023-06-20 09:15] VITALS: BP 115/70; PULSE 75; RESP 18; TEMP 98.3; BMI 31.6
[2023-06-20 10:05] LABS: BASO % 0.4 % (0-2.0); EOS % 1.9 % (0-4.5); HEMATOCRIT 37.3 % (32.4-45.2); HEMOGLOBIN 12.9 GM/dL (10.7-15.3); LYMPH % 27.5 % (8-40); MCH 30.3 pg (25.7-33.7); MCHC 34.5 g/dl (32.0-36.0); MEAN CELL VOLUME 87.6 fl (80-96); MEAN PLT VOLUME 8.4 fl (7.5-11.1); MONO % 5.4 % (3.8-10.2); NEUT % 64.8 % (42.8-82.8); PLATELET COUNT 228 10^3/uL (134-434); RBC 4.26 M/mm3 (3.60-5.2); RDW 13.9 % (11.6-15.6); WHITE BLOOD COUNT 6.3 K/mm3 (4.0-10.0)
== END 2023-06-20 12:23 | disposition home or self-care (01) ==
LOC: JER 09:04
DX: O03.9 Complete or unspecified spontaneous abortion without complication (principal)
CPT/HCPCS: 36415; 84702; 85025; 99283-25